=== PATIENT | female | born 1975 | race Hispanic/Latino ===

== ENCOUNTER 2021-04-02 12:08 | Emergency (ER) | payer OTHER ==
[~2021-04-02] VITALS: Ht 165.1 cm; Wt 70.3 kg
[2021-04-02] MEDS ORDERED: TRIAMCINOLONE ACETONIDE 40 MG/ML 1ML VIAL IM SCH (13:30)
[2021-04-02] MEDS ORDERED: NAPR-1180 PO (15:23)
[2021-04-02 15:27] VITALS: BP 132/75
== END 2021-04-02 15:31 | disposition home or self-care (01) ==
LOC: EDH 12:08
DX: M77.12 Lateral epicondylitis, left elbow (principal); Z90.49 Acquired absence of other specified parts of digestive tract
CPT/HCPCS: 20605; 73070; 99283; J3301